=== PATIENT | female | born 1930 | race Caucasian/White ===

== ENCOUNTER 2017-04-23 11:37 | Inpatient (IN) | payer OTHER ==
[~2017-04-23] VITALS: Ht 154.9 cm; Wt 45.9 kg
[~2017-04-23 11:37] MED LIST: ACID REDUCER200 MG PO; ALEVE220 M1 PO; ALEVE220 MG; AMLODIPINE BESY10 MG PO; AMLODIPINE PO; ASPIR 8181 MG PO; ASPIRIN EC325 M1 PO; ASPIRIN325 PO; B12INJ; B12INJ PO; BEE POLLEN500 M1; CARAFATE 1 GM TA1 G1 PO; CARVEDILOL12.5 MG PO; CARVEDILOL25 MG PO; CELEXA 10 MG TA10 M1 PO; CELEXA10 MG PO; CENTRUM COMPLE1 EACH PO; CENTRUM SILVER1 EAC4 PO; CIPROFLOXACIN500 M1 PO; CLONIDINE0.1 PO; COLACE100 MG PO; COREG PO; FERRO-TIME325 MG PO; HYDROCHLOROTHIA25 M2 PO; IMODIUM ADVANC1 EAC1; KEFLEX500 MG PO; LACTAID FAS9000 UNI1 PO; LEVAQUIN 500 M500 M1 PO; LEVOTHROID75 MCG PO; LEVOTHROID88 MCG PO; LEVOTHYROXIN0.075 MG PO; LEVOXYL88 MCG PO; LISINOPRIL10 MG PO; LISINOPRIL40 MG PO; LORTAB 5 MG/5001 TA1 PO; MACROBID 100 M100 M1 PO; MACROBID 100 M100 M2 PO; MELATONIN3 MG; MELATONIN3 MG PO; MIRALAX17 G1 PO; MIRALAX255 GM PO; NORVASC5 MG PO; OMEPRAZOLE 20 M20 M1 PO; OMEPRAZOLE20 M2 PO; PANTOPRAZOLE SO40 M1 PO; PHENERGAN 25 MG25 M1 PO; PRILOSEC 20 MG20 MG PO; PROTONIX40 M1 PO; SERTRALINE HCL50 MG PO; SPIRONOLACTONE25 M1 PO; TYLENOL325 MG PO; VITAMIN B-12500 MCG PO; VITCB500GO PO; ZESTRIL40 MG PO; ZOLOFT25 MG PO
[2017-04-23 11:42] VITALS: BP 145/109
[2017-04-23 12:56] LABS: HEMOGLOBIN 11.4 gm/dL (12.0-15.0); MCHC 32.7 g/dL (28.0-37.0); MCV 82.6 fL (80.0-100.0); PLATELET COUNT 309 thou/uL (150-400); RBC 4.24 mil/uL (4.20-5.00); WBC 11.1 thou/uL (4.0-11.0)
[2017-04-23 12:57] LABS: MANUAL DIFF YES
[2017-04-23 12:58] LABS: CALCIUM 9.2 mg/dL (8.5-10.1); CREATININE 1.4 mg/dL (0.6-1.0); POTASSIUM 4.5 mmol/L (3.5-5.1)
[2017-04-23 13:31] LABS: ABSOLUTE NEUTROPHILS 8.3 thou/uL (1.4-8.2); TOTAL CELL COUNT 100
[2017-04-23 13:32] LABS: ANISOCYTOSIS SLIGHT
[2017-04-23 14:15] VITALS: BP 148/51
[2017-04-23 19:30] VITALS: BP 169/56
[2017-04-24 03:44] VITALS: BP 150/54
[2017-04-24 06:33] LABS: ABSOLUTE NEUTROPHILS 5.4 thou/uL (1.4-8.2); BASOPHILS 0.9 % (0.0-2.0); EOSINOPHILS 5.5 % (0.0-3.0); HEMOGLOBIN 9.8 gm/dL (12.0-15.0); LYMPHOCYTES 15.3 % (24.0-44.0); MCH 27.6 pg (26.0-34.0); MCHC 33.7 g/dL (28.0-37.0); MCV 82.1 fL (80.0-100.0); MONOCYTES 10.5 % (1.0-8.0); PLATELET COUNT 240 thou/uL (150-400); POLYS 67.8 % (36.0-66.0); RBC 3.53 mil/uL (4.20-5.00); RDW 12.8 % (10.5-14.5); WBC 7.9 thou/uL (4.0-11.0)
[2017-04-24 06:35] LABS: MANUAL DIFF NO
[2017-04-24 06:45] LABS: CREATININE 1.3 mg/dL (0.6-1.0)
[2017-04-24 08:00] VITALS: BP 156/59
[2017-04-24 16:00] VITALS: BP 144/50
[2017-04-24 19:30] VITALS: BP 138/41
[2017-04-25 03:50] VITALS: BP 151/58
[2017-04-25 06:20] LABS: ABSOLUTE NEUTROPHILS 3.9 thou/uL (1.4-8.2); BASOPHILS 1.3 % (0.0-2.0); EOSINOPHILS 10.6 % (0.0-3.0); HEMATOCRIT 27.7 % (37.0-47.0); HEMOGLOBIN 9.2 gm/dL (12.0-15.0); LYMPHOCYTES 16.5 % (24.0-44.0); MCH 27.6 pg (26.0-34.0); MCHC 33.3 g/dL (28.0-37.0); MCV 82.8 fL (80.0-100.0); MONOCYTES 10.3 % (1.0-8.0); PLATELET COUNT 227 thou/uL (150-400); POLYS 61.3 % (36.0-66.0); RBC 3.35 mil/uL (4.20-5.00); RDW 12.8 % (10.5-14.5); WBC 6.4 thou/uL (4.0-11.0)
[2017-04-25 06:26] LABS: CALCIUM 7.9 mg/dL (8.5-10.1); CREATININE 1.1 mg/dL (0.6-1.0); POTASSIUM 3.7 mmol/L (3.5-5.1)
[2017-04-25 06:30] LABS: MANUAL DIFF NO
[2017-04-25 08:00] VITALS: BP 182/54
[2017-04-25] MEDS ORDERED: AMOXICILLIN875 MG PO (09:36)
[2017-04-25 16:13] VITALS: BP 151/58
== END 2017-04-25 12:10 | disposition home health service (06) | DRG 872 ==
LOC: ER 11:37 → 4S 12:57 → EROBS 12:57 → 4S 13:55
PROVIDERS: Emergency Medicine; Family Medicine
DX: A41.9 Sepsis, unspecified organism (principal); N17.9 Acute kidney failure, unspecified; N39.0 Urinary tract infection, site not specified; E03.9 Hypothyroidism, unspecified; N18.9 Chronic kidney disease, unspecified; K21.9 Gastro-esophageal reflux disease without esophagitis; Z96.641 Presence of right artificial hip joint; B96.20 Unspecified Escherichia coli [E. coli] as the cause of diseases classified elsewhere; Z91.011 Allergy to milk products; Z79.899 Other long term (current) drug therapy; Z98.42 Cataract extraction status, left eye; Z98.41 Cataract extraction status, right eye; Z87.891 Personal history of nicotine dependence; Z86.73 Personal history of transient ischemic attack (TIA), and cerebral infarction without residual deficits
CPT/HCPCS: 10195

== ENCOUNTER 2017-05-12 19:40 | Inpatient (IN) | payer OTHER ==
[~2017-05-12] VITALS: Ht 152.4 cm; Wt 43.5 kg
[~2017-05-12 19:40] MED LIST changes: +AMOXICILLIN875 MG PO
[2017-05-12 19:42] VITALS: BP 179/74
[2017-05-13 01:16] LABS: ABSOLUTE NEUTROPHILS 5.7 thou/uL (1.4-8.2); BASOPHILS 0.8 % (0.0-2.0); EOSINOPHILS 3.1 % (0.0-3.0); HEMATOCRIT 26.7 % (37.0-47.0); HEMOGLOBIN 8.9 gm/dL (12.0-15.0); LYMPHOCYTES 12.8 % (24.0-44.0); MCH 27.1 pg (26.0-34.0); MCHC 33.3 g/dL (28.0-37.0); MCV 81.2 fL (80.0-100.0); MONOCYTES 9.9 % (1.0-8.0); PLATELET COUNT 251 thou/uL (150-400); POLYS 73.4 % (36.0-66.0); RBC 3.29 mil/uL (4.20-5.00); RDW 13.9 % (10.5-14.5); WBC 7.8 thou/uL (4.0-11.0)
[2017-05-13 01:19] LABS: MANUAL DIFF NO
[2017-05-13 01:47] LABS: CALCIUM 8.5 mg/dL (8.5-10.1); CREATININE 1.7 mg/dL (0.6-1.0); POTASSIUM 4.1 mmol/L (3.5-5.1)
[2017-05-13 02:05] VITALS: BP 140/72
[2017-05-13 02:30] VITALS: BP 149/47
[2017-05-13 04:50] VITALS: BP 147/50
[2017-05-13 08:00] VITALS: BP 154/55
[2017-05-13 15:18] VITALS: BP 146/55
[2017-05-13 19:27] VITALS: BP 141/38
[2017-05-14 04:19] VITALS: BP 145/43
[2017-05-14 08:06] VITALS: BP 150/45
[2017-05-14 08:29] LABS: CALCIUM 8.6 mg/dL (8.5-10.1); CREATININE 1.7 mg/dL (0.6-1.0); POTASSIUM 3.9 mmol/L (3.5-5.1)
[2017-05-14 08:57] LABS: URINE BILIRUBIN NEGATIVE (Negative); URINE BLOOD 2+ (Negative); URINE COLOR YELLOW; URINE GLUCOSE-RANDOM* NEGATIVE (Negative); URINE KETONES NEGATIVE (Negative); URINE LEUKOCYTES-REFLEX 2+ (Negative); URINE PROTEIN (DIPSTICK) 2+ (Negative); URINE SPECIFIC GRAVITY 1.015 (1.003-1.035); URINE UROBILINOGEN 0.2 E.U./dl (0.2-1.0)
[2017-05-14 09:04] LABS: CASTS None Seen /LPF (None Seen); SQUAMOUS 4-10 Moderate /LPF (0-3); URINE RBC 0-2 Rare /HPF (0-2); URINE WBC-REFLEX 6-15 Few /HPF (0-5)
[2017-05-14 09:05] LABS: CRYSTALS None Seen /LPF (None Seen)
[2017-05-14 15:30] VITALS: BP 146/25
[2017-05-14 19:35] VITALS: BP 144/67
[2017-05-15 04:30] VITALS: BP 169/48
[2017-05-15 08:20] VITALS: BP 167/67
[2017-05-15] MEDS ORDERED: HYDROCODONE-AP1 EAC6 PO (11:59)
[2017-05-15] MEDS ORDERED: MIRALAX17 GM PO (11:59)
[2017-05-15 16:17] VITALS: BP 155/59
[2017-05-15 19:29] VITALS: BP 165/57
[2017-05-15 21:54] VITALS: BP 172/57
[2017-05-16 03:15] VITALS: BP 153/77
[2017-05-16 08:00] VITALS: BP 184/61; BP 187/55
[2017-05-16 10:19] VITALS: BP 164/60
[2017-05-16 11:37] LABS: CALCIUM 8.4 mg/dL (8.5-10.1); CREATININE 1.4 mg/dL (0.6-1.0); POTASSIUM 3.5 mmol/L (3.5-5.1)
== END 2017-05-16 13:33 | DRG 552 ==
LOC: ER 19:40 → EROBS 23:32 → 4S 23:32
PROVIDERS: Emergency Medicine; Family Medicine; Physician Assistant
DX: M54.5 Low back pain (principal); N17.9 Acute kidney failure, unspecified; I69.354 Hemiplegia and hemiparesis following cerebral infarction affecting left non-dominant side; N28.89 Other specified disorders of kidney and ureter; E03.9 Hypothyroidism, unspecified; K21.9 Gastro-esophageal reflux disease without esophagitis; Z96.641 Presence of right artificial hip joint; N18.9 Chronic kidney disease, unspecified; V00.811A Fall from moving wheelchair (powered), initial encounter; I12.9 Hypertensive chronic kidney disease with stage 1 through stage 4 chronic kidney disease, or unspecified chronic kidney disease; Z98.42 Cataract extraction status, left eye; Z98.41 Cataract extraction status, right eye; Z91.011 Allergy to milk products; Z87.891 Personal history of nicotine dependence; Z90.710 Acquired absence of both cervix and uterus; Y93.89 Activity, other specified; Y92.89 Other specified places as the place of occurrence of the external cause; Y99.8 Other external cause status